=== PATIENT | female | born 1960 | race Caucasian/White ===

== ENCOUNTER 2017-06-03 09:58 | Emergency (ER) | payer MEDICAID ==
[~2017-06-03] VITALS: Ht 152.4 cm; Wt 46.4 kg
[~2017-06-03 09:58] MED LIST: DARVOCET
[2017-06-03 10:01] VITALS: Ht 152.4 cm; Wt 46.4 kg
[2017-06-03] MEDS ORDERED: ALBUTEROL 0.083% (NEB) 2.5 MG/3 ML AMP HHN STA (11:13)
[2017-06-03] MEDS ORDERED: IPRATROPIUM (NEB) 0.5 MG/2.5 ML AMP HHN ONE (11:30)
--- NOTE | 2017-06-03 12:11 | RADRPT ---
PROCEDURE: XR Chest. CLINICAL INDICATION: cough and SOB TECHNIQUE: Single frontal view of the chest was obtained COMPARISON: None FINDINGS: The heart and mediastinum are within normal limits. The lungs are clear. There is no pleural effusion or pneumothorax. Degenerative changes of the spine and shoulder joints are present. The patient is post cholecystecto my. IMPRESSION: 1. No acute cardiopulmonary disease. RPTAT:AAJJ Physician Alex Date Time Electronically viewed and signed by Arminda Coon Physician on 06/03/2017 12:11 QL/
[2017-06-03] MEDS ORDERED: ALBU8.5H3 INH (12:16)
[2017-06-03] MEDS ORDERED: D-ME473S2 PO (12:16)
[2017-06-03 12:24] VITALS: BP 132/70; PULSE 89; RESP 18; TEMP 98.4
--- NOTE | 2017-06-03 13:01 | ERD ---
ER Documentation Chief Complaint Chief Complaint SOB,FEVER X 3 DAYS,BACK PAIN WHEN BREATHING. HPI 86-year-old female complaining of shortness of breath with cough 3 days. Patient states that it is been a dry cough with no fevers. She has not taken medications for symptoms. Patient does have a sore throat and runny nose. No sick contacts. No history of asthma or previous breathing abnormalities. Denies medical problems. NKDA. Surgical history: Cholecystectomy ROS All systems reviewed and are negative except as per history of present illness. Medications Home Meds Active Scripts Dextromethorphan Hb-Promethazine Hcl* (Promethazine DM* Syrup) 473 Ml Syrup, 5 ML PO Q6 Y for COUGH, #100 ML Prov:ILIA WATSON PA-C 06/03/17 Albuterol Sulfate* (Proair HFA*) 8.5 Gm Hfa.aer.ad, 2 PUFF INH Q4, #1 INHALER Prov:ILIA WATSON PA-C 06/03/17 Reported Medications Darvocet 11/13/09 Allergies Allergies: Coded Allergies: No Known Drug Allergies (Verified Allergy, Mild, 11/13/09) PMhx/Soc History of Surgery: Yes (C SECTIONS) Anesthesia Reaction: No Hx Neurological Disorder: No Hx Respiratory Disorders: No Hx Cardiac Disorders: No Hx Psychiatric Problems: No Hx Miscellaneous Medical Probl: No Hx Alcohol Use: No Hx Substance Use: No Hx Tobacco Use: No Physical Exam Vitals Vital Signs Date Time Temp Pulse Resp B/P Pulse Ox O2 Delivery O2 Flow Rate FiO2 06/03/17 12:24 98.4 89 18 132/70 98 06/03/17 11:37 89 18 98 21 06/03/17 10:01 98.4 89 18 135/74 98 Physical Exam GENERAL: The patient is well-appearing, well-nourished, in no acute distress HEENT: Atraumatic. Conjunctivae are pink. Pupils equal, round, and reactive to light. There is no scleral icterus. Tympanic membranes clear bilaterally. Oropharynx clear. No nystagmus or photophobia. NECK: C-spine is soft and supple. There is no meningismus. There is no cervical lymphadenopathy. No JVD. No bruits. No goiter. CHEST: Clear to auscultation bilaterally. There are no rales, wheezes or rhonchi. HEART: Regular rate and rhythm. No murmurs, clicks, rubs or gallops. No S3 or S4. Results 24 hrs Current Medications Medications (Trade) Dose Ordered Sig/Diane Route PRN Reason Start Time Stop Time Status Last Admin Dose Admin Albuterol (Proventil 0.083% (Neb)) 2.5 mg ONCE STAT HHN 06/03/17 11:13 06/03/17 11:15 DC 06/03/17 11:31 Ipratropium [place] (Atrovent 0.02% (Neb)) 0.5 mg ONCE ONCE HHN 06/03/17 11:30 06/03/17 11:31 DC 06/03/17 11:31 Procedures/MDM DIAGNOSTIC IMAGING REPORT Patient: THAO FLORES : 1960 Age: 56 Sex: F MR #: [id number] DOS: 06/03/17 1113 Ordering MD: RAMAKRISHNA WATSON PA-C Location: [facility] Room/Bed: PROCEDURE: XR Chest. CLINICAL INDICATION: cough and SOB TECHNIQUE: Single frontal view of the chest was obtained COMPARISON: None FINDINGS: The heart and mediastinum are within normal limits. The lungs are clear. There is no pleural effusion or pneumothorax. Degenerative changes of the spine and shoulder joints are present. The patient is post cholecystectomy. IMPRESSION: 1. No acute cardiopulmonary disease. ER Course: Albuterol and Atrovent given in ED. Patient's symptoms improved on reeval MDM: 86-year-old female complaining of cough. I have low suspicion for PE as patient does not have pleuritic chest pain with deep breaths. Patient's x-rays within normal limits. Patient's vital signs are stable. I have low suspicion for pneumonia as patient is afebrile and does not have abnormal breath sounds heard on auscultation. I have low suspicion for respiratory distress or hypoxia as patient's oxygen saturation is 98% on room air. I believe patient has viral cough and will be given medications for supportive treatment. Patient is told if symptoms change or worsen to return to the ER immediately. I have low suspicion for cardiac emergency as patient is not complaining of chest pain on exam. All questions answered at discharge. Patient will follow up with PMD within 1-2 days for close evaluation Departure Diagnosis: Primary Impression: Cough Condition: Stable Patient Instructions: Cough, Chronic, Uncertain Cause, (Adult) Referrals: [facility] YOU HAVE RECEIVED A MEDICAL SCREENING EXAM AND THE RESULTS INDICATE THAT YOU DO NOT HAVE A CONDITION THAT REQUIRES URGENT TREATMENT IN THE EMERGENCY DEPARTMENT. FURTHER EVALUATION AND TREATMENT OF YOUR CONDITION CAN WAIT UNTIL YOU ARE SEEN IN YOUR DOCTORS OFFICE WITHIN THE NEXT 1-2 DAYS. IT IS YOUR RESPONSIBILITY TO MAKE AN APPOINTMENT FOR FOLOW-UP CARE. IF YOU HAVE A PRIMARY DOCTOR --you should call your primary doctor and schedule an appointment IF YOU DO NOT HAVE A PRIMARY DOCTOR YOU CAN CALL OUR PHYSICIAN REFERRAL HOTLINE AT IF YOU CAN NOT AFFORD TO SEE A PHYSICIAN YOU CAN CHOSE FROM THE FOLLOWING [facility] [address] [facility]. [facility] [address] [facility] [facility] [address] [facility] [address] [facility]. [facility] [address] [facility]. [facility] [address] Additional Instructions: FOLLOW UP WITH YOUR PRIMARY CARE PHYSICIAN TOMORROW.Return to this facility if you are not improving as expected. ILIA WATSON PA-C Jun 03, 2017 13:01
== END 2017-06-03 12:25 | disposition home or self-care (01) ==
LOC: FTE 09:58
DX: R05 Cough (principal)
CPT/HCPCS: 71010; 94664; Z7502; Z7610